=== PATIENT | female | born 1960 | race American Indian/Alaskan Native ===

== ENCOUNTER 2018-07-06 14:59 | Emergency (ER) | payer OTHER ==
[2018-07-06 15:31] VITALS: BP 158/107; PULSE 96; RESP 18; TEMP 98.2; O2SAT 98
[2018-07-06 15:33] VITALS: BMI 28.3
--- NOTE | 2018-07-06 16:24 | ED PDOC ---
Arrival/HPI - General Chief Complaint: Upper Extremity Problem/Injury Time Seen by Provider: 07/06/18 16:17 Historian: Patient - History of Present Illness Narrative History of Present Illness (Text): 07/06/18 16:17 Patient is a 57yo F with no significant PMH presenting to ED with R arm pain. She reports the pain began 4 days ago in the R shoulder and progressed down the R arm. She describes the pain as tightness and rates it a 5/10. She claims it is intermittent and improves with movement. She reports taking advil at home with no relief. She reports associated numbness and tingling in the right thumb. She denies previous history of these symptoms, and denies any preceding falls or trauma. She denies fever, chills, headache, blurry vision, chest pain, palpitations, shortness of breath, abdominal pain, nausea, vomiting, diarrhea, dysuria. 07/06/18 16:53 Patient recalls lifting a mattress topper overhead the night prior to the onset of the pain and attributes that as the inciting event. Time/Duration: < week Symptom Onset: Sudden Symptom Course: Unchanged, Intermittent Quality: Pressure Severity Level: 5 Past Medical History - Provider Review Primary Care Physician: Baljeet Mcintyre MD - Infectious Disease Hx of Infectious Diseases: None - Reproductive Menopause: Yes - Cardiac Hx Cardiac Disorders: No - Pulmonary Hx Respiratory Disorders: No - Psychiatric Hx Substance Use: No - Anesthesia Hx Anesthesia: Yes Hx Anesthesia Reactions: No Family/Social History Family/Social History: Diabetes Smoking Status: Current Some Days Smoker Hx Alcohol Use: No Hx Substance Use: No Allergies/Home Meds Allergies/Adverse Reactions: Allergies No Known Allergies Allergy (Verified 07/06/18 15:32) Review of Systems - Review of Systems Constitutional: Normal Eyes: Normal. absent: Vision Changes Respiratory: Normal. absent: SOB Cardiovascular: Normal. absent: Chest Pain, Palpitations, Syncope Gastrointestinal: Normal. absent: Abdominal Pain, Diarrhea, Nausea, Vomiting Genitourinary Female: Normal. absent: Dysuria Musculoskeletal: Other (shoulder pain) Skin: Normal Neurological: Other (numbness). absent: Headache, Dizziness, Focal Weakness Endocrine: Normal Hemo/Lymphatic: Normal Psychiatric: Normal Physical Exam Vital Signs Reviewed: Yes Vital Signs Temp Pulse Resp BP Pulse Ox 07/06/18 15:23 98.2 F 96 H 18 158/107 H 98 Temperature: Afebrile Blood Pressure: Hypertensive Pulse: Regular Respiratory Rate: Normal Appearance: Positive for: Well-Appearing, Non-Toxic, Comfortable Pain Distress: None Mental Status: Positive for: Alert and Oriented X 3 - Systems Exam Head: Present: Atraumatic, Normocephalic Pupils: Present: PERRL Extroacular Muscles: Present: EOMI Conjunctiva: Present: Normal Mouth: Present: Moist Mucous Membranes Neck: Present: Normal Range of Motion, Other (negative spurlings test) Respiratory/Chest: Present: Clear to Auscultation, Good Air Exchange. No: Respiratory Distress, Accessory Muscle Use Cardiovascular: Present: Regular Rate and Rhythm, Normal S1, S2. No: Murmurs, Rub, Gallop Abdomen: Present: Normal Bowel Sounds. No: Tenderness, Distention, Peritoneal Signs Upper Extremity: Present: Normal Inspection, Normal ROM (pain with flexion of arm), Tenderness (tenderness to palpation of trapezius and triceps muscles. hypertonicity. ), Other (Negative Neer's sign, negativetive Hawkin's test. Negative tinel's test. Negative Phalen's test. ). No: Cyanosis, Edema Lower Extremity: Present: Normal Inspection. No: Edema Neurological: Present: GCS=15, CN II-XII Intact, Speech Normal Skin: Present: Warm, Normal Color. No: Dry, Rashes Psychiatric: Present: Alert, Oriented x 3, Normal Insight, Normal Concentration Medical Decision Making ED Course and Treatment: 07/06/18 16:59 Likely muscle spasm. Explained nature and management of condition. Instructed patient to take NSAIDs and muscle relaxers as needed for pain and to perform stretches daily. Advised patient to follow up with primary doctor within 2 days. Patient understood instructions and agreed. Disposition/Present on Arrival - Present on Arrival Any Indicators Present on Arrival: No History of DVT/PE: No History of Uncontrolled Diabetes: No Urinary Catheter: No History of Decub. Ulcer: No History Surgical Site Infection Following: None - Disposition Have Diagnosis and Disposition been Completed?: Yes Diagnosis: Muscle spasm Disposition: HOME/ ROUTINE Disposition Time: 17:01 Patient Problems: Current Active Problems Problem Status Onset Muscle spasm Acute Condition: STABLE Discharge Instructions (ExitCare): Muscle Spasms (DC) Additional Instructions: Please follow up with your primary care physician within 2 days. Take Naproxen and Flexeril as needed for pain. Perform the stretches instructed to you for 15 seconds, 5 times a day. If symptoms worsen return to the emergency department. Prescriptions: Cyclobenzaprine [Cyclobenzaprine HCl] 10 mg PO Q12H PRN #15 tab PRN Reason: Pain, Moderate (4-7) Naproxen 500 mg PO Q12H PRN #20 tab PRN Reason: Pain, Moderate (4-7) Referrals: Baljeet Mcintyre MD [Primary Care Provider] - Follow up with primary Forms: [employer] (Yakut)
== END 2018-07-06 17:19 | disposition home or self-care (01) ==
LOC: ED 14:59
DX: M62.838 Other muscle spasm (principal); Z83.3 Family history of diabetes mellitus